=== PATIENT | male | born 1990 | race Hispanic/Latino ===

== ENCOUNTER 2018-04-07 19:54 | Emergency (ER) | payer OTHER | END 2018-04-07 21:49 | disposition home or self-care (01) | LOC: ERS 19:54 | DX: S00.412A Abrasion of left ear, initial encounter (principal); H72.92 Unspecified perforation of tympanic membrane, left ear; F41.9 Anxiety disorder, unspecified; F31.9 Bipolar disorder, unspecified; F20.9 Schizophrenia, unspecified; X58.XXXA Exposure to other specified factors, initial encounter | CPT/HCPCS: 99282 ==

== ENCOUNTER 2018-04-12 00:46 | Emergency (ER) | payer OTHER ==
[2018-04-12] MEDS ORDERED: Ketorolac Tromethamine 30 MG/ML VIAL ONE (01:25)
== END 2018-04-12 01:48 | disposition home or self-care (01) ==
LOC: ERS 00:46
DX: H72.92 Unspecified perforation of tympanic membrane, left ear (principal); G40.909 Epilepsy, unspecified, not intractable, without status epilepticus; F41.9 Anxiety disorder, unspecified; F31.9 Bipolar disorder, unspecified; F20.9 Schizophrenia, unspecified
CPT/HCPCS: 96372; J1885

== ENCOUNTER 2019-07-19 02:29 | Emergency (ER) | payer OTHER ==
[2019-07-19] MEDS ORDERED: Triple Antibiotic Oint 1 GM Packet ONE (02:35)
== END 2019-07-19 02:55 | disposition home or self-care (01) ==
LOC: ERS 02:29
DX: S60.512A Abrasion of left hand, initial encounter (principal); S60.511A Abrasion of right hand, initial encounter; S50.812A Abrasion of left forearm, initial encounter; F41.9 Anxiety disorder, unspecified; F31.9 Bipolar disorder, unspecified; F20.9 Schizophrenia, unspecified; V23.4XXA Motorcycle driver injured in collision with car, pick-up truck or van in traffic accident, initial encounter
CPT/HCPCS: 99282